=== PATIENT | male | born 2000 | race African-American/Black ===

== ENCOUNTER 2025-09-22 13:40 | Inpatient (IN) | payer OTHER ==
[~2025-09-22] VITALS: Ht 177.8 cm; Wt 85.5 kg
[2025-09-22] MEDS ORDERED: ADVA115A INH (13:50)
[2025-09-22 14:13] LABS: BASO # 0.0 10^3/uL (0.0-0.2); BASO % 0.2 % (0.0-1.0); EOS # 0.0 10^3/uL (0.0-0.5); EOS % 0.0 % (0.0-3.0); LYMPH # 0.8 10^3/uL (1.5-5.0); LYMPH % 4.7 % (24.0-44.0); MONO # 1.5 10^3/uL (0.0-0.8); MONO % 8.6 % (2.0-8.0); NEUTROPHILS # 15.2 10^3/uL (1.5-8.5); NEUTROPHILS % 85.9 % (36.0-66.0); PLATELET COUNT, AUTOMATED 215 10^3/uL (150-450)
[2025-09-22] MEDS: ACETAMINOPHEN *IV* 1,000 MG in IV 1 EA IV ONE (14:24)
[2025-09-22 14:40] LABS: ALT/SGPT 16 U/L (7.0-40); AST/SGOT 20 U/L (<34); CALCIUM LEVEL 8.8 MG/DL (8.5-10.1); CARBON DIOXIDE LEVEL 25 MMOL/L (20-31); CHLORIDE LEVEL 98 MMOL/L (98-107); CREATININE FOR GFR 1.10 MG/DL (0.70-1.30); GLOMERULAR FILTRATION RATE > 90.0 (>60); POTASSIUM SERUM 4.3 MMOL/L (3.5-5.1); SODIUM LEVEL 133 MMOL/L (136-145)
[2025-09-22] MEDS: NS (Normal Saline) 0.9% 1,000 ML IV ONE ×2 (14:45→21:42)
[2025-09-22] MEDS ORDERED: ISOVUE-370 76% 100 ML VIAL As Ordered ONE (15:01)
[2025-09-22] MEDS: ONDANSETRON 4MG/2ML VIAL IV ONE (16:00)
[2025-09-22 16:01] LABS: KETONE, URINE AUTO RFX NEGATIVE (NEGATIVE); LEUKOCYTE ESTERASE UR AUTO RFX NEGATIVE (NEGATIVE); NITRITE, URINE AUTO RFX NEGATIVE (NEGATIVE); RBC, URINE AUTO RFX 0 /HPF (0-3); SQUAM EPITHELIAL CELL UR AURFX 0 /HPF (0-6); WBC, URINE AUTO RFX 0 /HPF (0-3)
[2025-09-22] MEDS: MORPHINE 2 MG/ML 1 ML VIAL IV ONE (16:01)
[2025-09-22] MEDS: metroNIDAZOLE 500 MG in IV 1 EA IV ONE (16:20)
[2025-09-22] MEDS: HYDROMORPHONE HCL 0.5 MG/0.5 ML SYRINGE IV ONE (16:38)
[2025-09-22] MEDS: CIPROFLOXACIN 400 MG in IV 1 EA IV ONE (17:21)
[2025-09-22] MEDS ORDERED: MIDAZOLAM INJ 2 MG/2 ML VIAL As Ordered ONE (17:32)
[2025-09-22] MEDS ORDERED: dexAMETHasone 4 MG/ML 1 ML VIAL As Ordered ONE (17:33)
[2025-09-22] MEDS ORDERED: ROCURONIUM BROMIDE 50MG/5ML VIAL As Ordered ONE (17:34)
[2025-09-22] MEDS ORDERED: dexmedeTOMIDine (4 MCG/ML) 200 MCG/50 ML BTL As Ordered ONE (17:54)
[2025-09-22] MEDS ORDERED: LIDOCAINE 2% 100 MG/5 ML SDV (FOR ANES.) As Ordered ONE (17:56)
[2025-09-22] MEDS ORDERED: PHENYLephrine 500MCG 5ML (100MCG/ML) SYRINGE As Ordered ONE (18:10)
[2025-09-22] MEDS ORDERED: SUGAMMADEX SODIUM 200 MG/2 ML VIAL As Ordered ONE (18:38)
[2025-09-22] MEDS ORDERED: HYDROmorphone HCL 2 MG/ML 1 ML VIAL As Ordered ONE (18:55)
[2025-09-22] MEDS: LIDOCAINE 1% SDV 30 ML VIAL As Ordered ONE (19:00)
[2025-09-22] MEDS: ADVAIR HFA 115/21 MCG INHALER INH SCH (20:00)
[2025-09-22 20:07] VITALS: BP 108/62; TEMP 98.7; O2SAT 94
[2025-09-22 20:30] VITALS: BP 112/53; TEMP 97.6; O2SAT 93
[2025-09-22 21:00] VITALS: BP 117/56; TEMP 97; O2SAT 94
[2025-09-22] MEDS ORDERED: PIPERACILLIN/TAZOBACTAM SOD 3.375 GM in DEXTROSE 5% (D5W) ADV/MINI-BAG 50 ML IV SCH (21:00)
[2025-09-22] MEDS: LR 1,000 ML IV SCH (21:39)
[2025-09-22] MEDS: KETOROLAC 30 MG/ML 1 ML VIAL IV SCH (21:39)
[2025-09-22 22:00] VITALS: BP 116/56; TEMP 97; O2SAT 96
[2025-09-22 23:00] VITALS: BP 107/53; TEMP 97; O2SAT 96
[2025-09-22] MEDS: metroNIDAZOLE 500 MG in IV 1 EA IV SCH (23:21)
[2025-09-23] VITALS (7 sets, daily range): BP systolic 107–125; BP diastolic 53–70; TEMP 97.5–100; O2SAT 94–100
[2025-09-23] MEDS: CIPROFLOXACIN 400 MG in IV 1 EA IV SCH (05:07)
[2025-09-23 06:43] LABS: PLATELET COUNT, AUTOMATED 188 10^3/uL (150-450)
[2025-09-23 06:58] LABS: CALCIUM LEVEL 7.9 MG/DL (8.5-10.1); CARBON DIOXIDE LEVEL 26 MMOL/L (20-31); CHLORIDE LEVEL 99 MMOL/L (98-107); CREATININE FOR GFR 1.03 MG/DL (0.70-1.30); GLOMERULAR FILTRATION RATE > 90.0 (>60); POTASSIUM SERUM 4.7 MMOL/L (3.5-5.1); SODIUM LEVEL 135 MMOL/L (136-145)
[2025-09-23 07:16] LABS: C REACTIVE PROTEIN QUANTITATIV 29.33 MG/DL (<1.0)
[2025-09-23 07:33] LABS: ATYPICAL LYMPH 3 % (0-5); LYMPHOCYTES 4 % (16-44); MONOCYTES 8 % (0-5); NEUTROPHILS 43 % (28-66)
[2025-09-23 07:34] LABS: PLATELET ESTIMATE NORMAL (NORMAL)
[2025-09-23] MEDS ORDERED: HOME MED LIST COMPLETE! XX SCH (10:40)
[2025-09-23] MEDS ORDERED: LACTULOSE 20 GM/30 ML SYRUP UDC PO PRN ×2 (12:55→21:00)
[2025-09-23] MEDS: SENNOSIDES/DOCUSATE SODIUM 8.6 MG/50MG TAB PO PRN (13:48)
[2025-09-23] MEDS ORDERED: ALBUTEROL 90 MCG/ACT 8 GM HFA INHALER INH PRN (14:40)
[2025-09-23] MEDS: LACTULOSE 20 GM/30 ML SYRUP UDC PO SCH (16:37)
[2025-09-23] MEDS: ONDANSETRON 4MG/2ML VIAL IV PRN (19:08)
[2025-09-24 04:00] VITALS: BP_SYST 121; BP_SYST 149; BP_DIAS 57; BP_DIAS 91; TEMP 98.6; O2SAT 99
[2025-09-24 06:14] LABS: BASO # 0.0 10^3/uL (0.0-0.2); BASO % 0.1 % (0.0-1.0); EOS # 0.0 10^3/uL (0.0-0.5); EOS % 0.0 % (0.0-3.0); LYMPH # 1.0 10^3/uL (1.5-5.0); LYMPH % 9.1 % (24.0-44.0); MONO # 0.8 10^3/uL (0.0-0.8); MONO % 7.0 % (2.0-8.0); NEUTROPHILS # 9.3 10^3/uL (1.5-8.5); NEUTROPHILS % 83.3 % (36.0-66.0); PLATELET COUNT, AUTOMATED 209 10^3/uL (150-450)
[2025-09-24 06:44] LABS: CALCIUM LEVEL 7.8 MG/DL (8.5-10.1); CARBON DIOXIDE LEVEL 26 MMOL/L (20-31); CHLORIDE LEVEL 103 MMOL/L (98-107); CREATININE FOR GFR 1.10 MG/DL (0.70-1.30); GLOMERULAR FILTRATION RATE > 90.0 (>60); POTASSIUM SERUM 4.5 MMOL/L (3.5-5.1); SODIUM LEVEL 140 MMOL/L (136-145)
[2025-09-24 06:57] LABS: C REACTIVE PROTEIN QUANTITATIV 27.27 MG/DL (<1.0)
[2025-09-24] MEDS: ACETAMINOPHEN 325 MG TAB PO PRN (08:16)
[2025-09-24 12:00] VITALS: BP 121/58; TEMP 98.5; O2SAT 97
[2025-09-24] MEDS: PERCOCET 5MG/325MG TAB PO PRN (16:00)
[2025-09-24 20:00] VITALS: BP 119/58; TEMP 99.7; O2SAT 96
[2025-09-25] MEDS: PERCOCET 5MG/325MG TAB PO PRN (00:33)
[2025-09-25 04:00] VITALS: BP 129/61; TEMP 98.4; O2SAT 97
[2025-09-25 06:18] LABS: PLATELET COUNT, AUTOMATED 259 10^3/uL (150-450)
[2025-09-25 06:39] LABS: EOSINOPHILS 1 % (0-3); LYMPHOCYTES 8 % (16-44); MONOCYTES 7 % (0-5); NEUTROPHILS 83 % (28-66); PLATELET ESTIMATE NORMAL (NORMAL)
[2025-09-25 06:48] LABS: CALCIUM LEVEL 7.8 MG/DL (8.5-10.1); CARBON DIOXIDE LEVEL 27 MMOL/L (20-31); CHLORIDE LEVEL 102 MMOL/L (98-107); CREATININE FOR GFR 0.97 MG/DL (0.70-1.30); GLOMERULAR FILTRATION RATE > 90.0 (>60); POTASSIUM SERUM 4.4 MMOL/L (3.5-5.1); SODIUM LEVEL 139 MMOL/L (136-145)
[2025-09-25 07:04] LABS: C REACTIVE PROTEIN QUANTITATIV 25.19 MG/DL (<1.0)
[2025-09-25 13:03] VITALS: BP 127/59; TEMP 98; O2SAT 98
[2025-09-25 19:57] VITALS: BP 117/56; TEMP 98.2; O2SAT 97
[2025-09-26] VITALS (7 sets, daily range): BP systolic 103–141; BP diastolic 50–71; TEMP 98.1–102.5; O2SAT 95–100
[2025-09-26] MEDS: MOM 30 ML SUSPENSION UDC PO PRN (09:19)
[2025-09-26 10:16] LABS: BASO # 0.1 10^3/uL (0.0-0.2); BASO % 0.5 % (0.0-1.0); EOS # 0.1 10^3/uL (0.0-0.5); EOS % 0.6 % (0.0-3.0); LYMPH # 1.3 10^3/uL (1.5-5.0); LYMPH % 11.5 % (24.0-44.0); MONO # 1.9 10^3/uL (0.0-0.8); MONO % 16.5 % (2.0-8.0); NEUTROPHILS # 7.8 10^3/uL (1.5-8.5); NEUTROPHILS % 67.1 % (36.0-66.0); PLATELET COUNT, AUTOMATED 268 10^3/uL (150-450)
[2025-09-26 10:41] LABS: CALCIUM LEVEL 7.7 MG/DL (8.5-10.1); CARBON DIOXIDE LEVEL 25 MMOL/L (20-31); CHLORIDE LEVEL 102 MMOL/L (98-107); CREATININE FOR GFR 0.92 MG/DL (0.70-1.30); GLOMERULAR FILTRATION RATE > 90.0 (>60); POTASSIUM SERUM 4.5 MMOL/L (3.5-5.1); SODIUM LEVEL 138 MMOL/L (136-145)
[2025-09-26 10:53] LABS: C REACTIVE PROTEIN QUANTITATIV 23.45 MG/DL (<1.0)
[2025-09-26] MEDS: BISACODYL 10 MG SUPP PR ONE (11:28)
[2025-09-26] MEDS: GASTROGRAFIN SOLUTION 30ML PO SCH (11:40)
[2025-09-26] MEDS: NS (Normal Saline) 0.9% 1,000 ML IV SCH (15:45)
[2025-09-26] MEDS: SODIUM CHLORIDE 0.9% 1000 ML XX SCH (15:45)
[2025-09-26] MEDS: LIDOCAINE 1% MDV 20 ML VIAL SC SCH (16:59)
[2025-09-26] MEDS: MIDAZOLAM INJ 2 MG/2 ML VIAL IV PRN (17:00)
[2025-09-26] MEDS: ISOVUE-300 61% 100 ML VIAL IV SCH (17:00)
[2025-09-27] MEDS: MORPHINE 2 MG/ML 1 ML VIAL IV PRN ×2 (01:55→12:40)
[2025-09-27 03:12] VITALS: BP 126/59; TEMP 99.5; O2SAT 95
[2025-09-27] MEDS: NS (Normal Saline) 0.9% 1,000 ML IV SCH (03:25)
[2025-09-27] MEDS: SODIUM CHLORIDE 0.9% INJ 10 ML SYR XX SCH (09:21)
[2025-09-27 09:28] LABS: PLATELET COUNT, AUTOMATED 341 10^3/uL (150-450)
[2025-09-27 09:59] LABS: CALCIUM LEVEL 8.4 MG/DL (8.5-10.1); CARBON DIOXIDE LEVEL 30 MMOL/L (20-31); CHLORIDE LEVEL 97 MMOL/L (98-107); CREATININE FOR GFR 0.98 MG/DL (0.70-1.30); GLOMERULAR FILTRATION RATE > 90.0 (>60); POTASSIUM SERUM 5.1 MMOL/L (3.5-5.1); SODIUM LEVEL 136 MMOL/L (136-145)
[2025-09-27 10:10] LABS: C REACTIVE PROTEIN QUANTITATIV 29.61 MG/DL (<1.0)
[2025-09-27 12:25] VITALS: BP 119/59; TEMP 98.6; O2SAT 95
[2025-09-27] MEDS: NS (Normal Saline) 0.9% 2,560 ML in IV 1 EA IV STA (14:51)
[2025-09-27 20:37] VITALS: BP 137/64; TEMP 98.9; O2SAT 97
[2025-09-28 06:06] VITALS: BP 134/75; TEMP 99.4; O2SAT 95
[2025-09-28 06:59] LABS: PLATELET COUNT, AUTOMATED 347 10^3/uL (150-450)
[2025-09-28 07:21] LABS: CALCIUM LEVEL 7.8 MG/DL (8.5-10.1); CARBON DIOXIDE LEVEL 26 MMOL/L (20-31); CHLORIDE LEVEL 103 MMOL/L (98-107); CREATININE FOR GFR 0.90 MG/DL (0.70-1.30); GLOMERULAR FILTRATION RATE > 90.0 (>60); POTASSIUM SERUM 4.6 MMOL/L (3.5-5.1); SODIUM LEVEL 139 MMOL/L (136-145)
[2025-09-28 07:33] LABS: C REACTIVE PROTEIN QUANTITATIV 23.77 MG/DL (<1.0)
[2025-09-28 07:36] LABS: ATYPICAL LYMPH 3 % (0-5); LYMPHOCYTES 15 % (16-44); METAMYELOCYTES 3 % (0-0); MONOCYTES 3 % (0-5); MYELOCYTES 4 % (0-0); NEUTROPHILS 64 % (28-66); PLASMA CELL 2 % (0-0)
[2025-09-28 07:38] LABS: PLATELET ESTIMATE NORMAL (NORMAL)
[2025-09-28] MEDS: ENOXAPARIN 40 MG/0.4 ML SYRINGE (J1650 PER 10MG) SC SCH (09:00)
[2025-09-28 12:08] VITALS: BP 123/63; TEMP 98; O2SAT 97
[2025-09-28 19:56] VITALS: BP 143/63; TEMP 99.2; O2SAT 97
[2025-09-29 04:21] VITALS: BP 126/65; TEMP 98.2; O2SAT 97
[2025-09-29 05:49] LABS: BASO # 0.0 10^3/uL (0.0-0.2); BASO % 0.2 % (0.0-1.0); EOS # 0.1 10^3/uL (0.0-0.5); EOS % 0.6 % (0.0-3.0); LYMPH # 2.2 10^3/uL (1.5-5.0); LYMPH % 18.4 % (24.0-44.0); MONO # 1.2 10^3/uL (0.0-0.8); MONO % 9.6 % (2.0-8.0); NEUTROPHILS # 7.7 10^3/uL (1.5-8.5); NEUTROPHILS % 64.2 % (36.0-66.0); PLATELET COUNT, AUTOMATED 357 10^3/uL (150-450)
[2025-09-29 06:17] LABS: CALCIUM LEVEL 8.1 MG/DL (8.5-10.1); CARBON DIOXIDE LEVEL 27 MMOL/L (20-31); CHLORIDE LEVEL 103 MMOL/L (98-107); CREATININE FOR GFR 1.04 MG/DL (0.70-1.30); GLOMERULAR FILTRATION RATE > 90.0 (>60); POTASSIUM SERUM 4.3 MMOL/L (3.5-5.1); SODIUM LEVEL 140 MMOL/L (136-145)
[2025-09-29 06:31] LABS: C REACTIVE PROTEIN QUANTITATIV 15.66 MG/DL (<1.0)
[2025-09-29] MEDS: cefTRIAXone SOD 1 GM in DEXTROSE 5% (D5W) ADV/MINI-BAG 50 ML IV SCH (08:39)
[2025-09-29 12:00] VITALS: BP 134/61; TEMP 98.3; O2SAT 99
[2025-09-30 06:33] LABS: BASO # 0.1 10^3/uL (0.0-0.2); BASO % 0.9 % (0.0-1.0); EOS # 0.1 10^3/uL (0.0-0.5); EOS % 0.5 % (0.0-3.0); LYMPH # 2.1 10^3/uL (1.5-5.0); LYMPH % 18.7 % (24.0-44.0); MONO # 1.0 10^3/uL (0.0-0.8); MONO % 8.9 % (2.0-8.0); NEUTROPHILS # 7.4 10^3/uL (1.5-8.5); NEUTROPHILS % 66.1 % (36.0-66.0); PLATELET COUNT, AUTOMATED 355 10^3/uL (150-450)
[2025-09-30 07:08] LABS: CALCIUM LEVEL 8.0 MG/DL (8.5-10.1); CARBON DIOXIDE LEVEL 29 MMOL/L (20-31); CHLORIDE LEVEL 107 MMOL/L (98-107); CREATININE FOR GFR 1.06 MG/DL (0.70-1.30); GLOMERULAR FILTRATION RATE > 90.0 (>60); POTASSIUM SERUM 4.3 MMOL/L (3.5-5.1); SODIUM LEVEL 143 MMOL/L (136-145)
[2025-09-30 07:24] LABS: C REACTIVE PROTEIN QUANTITATIV 10.68 MG/DL (<1.0)
[2025-09-30] MEDS: MIRALAX *UNIT DOSE* 17 GM PACKET PO SCH (11:21)
[2025-09-30] MEDS: BISACODYL 10 MG SUPP PR ONE (11:21)
[2025-09-30 12:00] VITALS: BP 122/59; TEMP 98.1; O2SAT 99
[2025-09-30 20:44] VITALS: BP 128/67; TEMP 98.3; O2SAT 100
[2025-10-01] MEDS: KETOROLAC 30 MG/ML 1 ML VIAL IV ONE (00:17)
[2025-10-01 05:07] VITALS: BP 109/58; TEMP 98; O2SAT 98
[2025-10-01 06:47] LABS: BASO # 0.1 10^3/uL (0.0-0.2); BASO % 0.8 % (0.0-1.0); EOS # 0.1 10^3/uL (0.0-0.5); EOS % 1.3 % (0.0-3.0); LYMPH # 2.3 10^3/uL (1.5-5.0); LYMPH % 22.5 % (24.0-44.0); MONO # 0.9 10^3/uL (0.0-0.8); MONO % 8.7 % (2.0-8.0); NEUTROPHILS # 6.3 10^3/uL (1.5-8.5); NEUTROPHILS % 62.9 % (36.0-66.0); PLATELET COUNT, AUTOMATED 339 10^3/uL (150-450)
[2025-10-01 12:36] VITALS: BP 124/59; TEMP 98.3; O2SAT 100
[2025-10-01 21:03] VITALS: BP 128/65; TEMP 99.2; O2SAT 95
[2025-10-02 04:39] VITALS: BP 131/61; TEMP 98.7; O2SAT 94
[2025-10-02 05:51] LABS: PLATELET COUNT, AUTOMATED 325 10^3/uL (150-450)
[2025-10-02 06:22] LABS: ALT/SGPT 43 U/L (7.0-40); AST/SGOT 31 U/L (<34); CALCIUM LEVEL 7.8 MG/DL (8.5-10.1); CARBON DIOXIDE LEVEL 28 MMOL/L (20-31); CHLORIDE LEVEL 107 MMOL/L (98-107); CREATININE FOR GFR 0.99 MG/DL (0.70-1.30); GLOMERULAR FILTRATION RATE > 90.0 (>60); POTASSIUM SERUM 4.3 MMOL/L (3.5-5.1); SODIUM LEVEL 143 MMOL/L (136-145)
[2025-10-02 12:00] VITALS: BP 112/56; TEMP 98.6; O2SAT 100
[2025-10-02 20:17] VITALS: BP 116/59; TEMP 98.5; O2SAT 97
[2025-10-02] MEDS: CEPHALEXIN 500 MG CAP PO SCH (21:28)
[2025-10-03 04:40] VITALS: BP 114/57; TEMP 98.4; O2SAT 97
[2025-10-03 09:30] LABS: PLATELET COUNT, AUTOMATED 332 10^3/uL (150-450)
[2025-10-03 10:03] LABS: ALT/SGPT 58 U/L (7.0-40); AST/SGOT 43 U/L (<34); CALCIUM LEVEL 8.5 MG/DL (8.5-10.1); CARBON DIOXIDE LEVEL 27 MMOL/L (20-31); CHLORIDE LEVEL 101 MMOL/L (98-107); CREATININE FOR GFR 0.97 MG/DL (0.70-1.30); GLOMERULAR FILTRATION RATE > 90.0 (>60); POTASSIUM SERUM 4.3 MMOL/L (3.5-5.1); SODIUM LEVEL 135 MMOL/L (136-145)
[2025-10-03 12:00] VITALS: BP 124/58; TEMP 98.2; O2SAT 100
[2025-10-03] MEDS ORDERED: METR-265 PO (12:21)
[2025-10-03] MEDS ORDERED: CEPH500C PO (12:21)
[2025-10-03] MEDS ORDERED: SENN-208 PO (12:21)
== END 2025-10-03 13:15 | disposition home or self-care (01) | DRG 853 ==
LOC: M ED 13:40 → M ED INP 16:37 → M MS4PR 19:55 → M MSPAV 09-26 19:06
PROVIDERS: ADMIT Surgery; ATTEND Internal Medicine
PROC: 0DTJ4ZZ Resection of Appendix, Percutaneous Endoscopic Approach (ICD-10-PCS; principal; 2025-09-22 16:46)
PROC: 0W9G3ZZ Drainage of Peritoneal Cavity, Percutaneous Approach (ICD-10-PCS; 2025-09-26)
DX: A41.9 Sepsis, unspecified organism (principal); U07.1 COVID-19; K35.33 Acute appendicitis with perforation, localized peritonitis, and gangrene, with abscess; K56.609 Unspecified intestinal obstruction, unspecified as to partial versus complete obstruction; K91.89 Other postprocedural complications and disorders of digestive system; K59.00 Constipation, unspecified; J45.909 Unspecified asthma, uncomplicated; Z88.0 Allergy status to penicillin